=== PATIENT | female | born 1980 | race Caucasian/White ===

== ENCOUNTER 2019-01-27 23:21 | Emergency (ER) | payer MEDICAID ==
--- NOTE | 2019-01-27 23:42 | EDM.PDOC ---
ED HPI GENERAL MEDICAL PROBLEM - General Stated Complaint: WRIST INJURY Time Seen by Provider: 01/27/19 23:38 Source of Information: Reports: Patient History Limitations: Reports: No Limitations - History of Present Illness INITIAL COMMENTS - FREE TEXT/NARRATIVE: 38-year-old female who reports on 01/24/2019 she was walking across her living room floor and she tripped over some of her children's toys and fell onto her couch hyper flexing her right wrist and landing directly on her right wrist. She reports she had immediate pain in the wrist at that time and since that time she has continued to have pain with use of the right wrist. It is a sharp and sore pain. She rates pain as a 6/10. It just does not appear to be getting better or going away. She also feels tingling in her fingers off and on. 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 There were no other injuries. No neck pain. No head pain. No loss of consciousness. No back pain. There are no other associated signs or symptoms. There are no other modifying factors. 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 Surgical history as detailed below.) - Past Surgical History HEENT Surgical History: Reports: Oral Surgery ([place] teeth extraction) Female Surgical History: Reports: Section (2) Social & Family History - Tobacco Use Smoking Status *Q: Never Smoker - Alcohol Use Alcohol Use History: No - Living Situation & Occupation Social History Comment: States she has 8 children. Review of Systems - Review of Systems Review Of Systems: See Below Constitutional: Reports: No Symptoms Eyes: Reports: No Symptoms Ears: Reports: No Symptoms Nose: Reports: No Symptoms Mouth/Throat: Reports: No Symptoms Respiratory: Reports: No Symptoms Cardiovascular: Reports: No Symptoms GI/Abdominal: Reports: No Symptoms Genitourinary: Reports: No Symptoms Musculoskeletal: Reports: Joint Pain (Right wrist pain), Other (Patient is right -hand dominant) Skin: Reports: No Symptoms Neurological: Reports: No Symptoms Psychiatric: Reports: No Symptoms ED EXAM, GENERAL - Physical Exam Exam: See Below Exam Limited By: No Limitations General Appearance: Alert, WD/WN, Mild Distress Eye Exam: Bilateral Eye: EOMI, Normal Inspection, PERRL Ears: Normal External Exam, Hearing Grossly Normal Ear Exam: Bilateral Ear: Auricle Normal Nose: Normal Inspection, Normal Mucosa, No Blood Throat/Mouth: Normal Inspection, Normal Oropharynx, Normal Voice, No Airway Compromise Head: Atraumatic, Normocephalic Neck: Normal Inspection, Supple, Non-Tender, Full Range of Motion Respiratory/Chest: No Respiratory Distress, Lungs Clear, Normal Breath Sounds, No Accessory Muscle Use, Chest Non-Tender Cardiovascular: Normal Peripheral Pulses, Regular Rate, Rhythm, No JVD Peripheral Pulses: 2+: Radial (L), Radial (R) GI/Abdominal: Normal Bowel Sounds, Soft, Non-Tender Back Exam: Normal Inspection Extremities: Normal Range of Motion, No Pedal Edema, Normal Capillary Refill, Other (Tender over the right dorsal radial distal forearm and wrist area. There is no snuffbox area tenderness.) Neurological: Alert, Oriented, CN II-XII Intact, Normal Cognition, No Motor/ Sensory Deficits Skin Exam: Warm, Dry, Intact, Normal Color, No Rash Course - Orders/Labs/Meds Orders: Active Orders 24 hr Category Date Time Status Wrist Comp Min 3V Rt [CR] Stat Exams 01/27/19 23:32 Taken - Radiology Interpretation Free Text/Narrative:: X-ray of right wrist showed no definite fracture. - Re-Assessments/Exams Free Text/Narrative Re-Assessment/Exam: 01/28/19 00:08: The x-ray of the right wrist did not show any evidence for fracture on my read. She has no pain over her snuffbox area. She appears to have a sprain of her right wrist. We'll place her in a Velcro wrist splint and she is to have graded increase in activity with her wrist as tolerated. She should use the splint for comfort and support. She may take Tylenol and ibuprofen as needed for pain. She should follow-up with her primary doctor for any continued problems with pain or decreased mobility. Departure - Departure Time of Disposition: 00:15 Disposition: Home, Self-Care 01 Condition: Good Clinical Impression: Right wrist sprain Qualifiers: Encounter type: initial encounter Qualified Code(s): S63.501A - Unspecified sprain of right wrist, initial encounter - Discharge Information Instructions: Wrist Sprain, Adult Referrals: Diaz Leon MD [Primary Care Provider] - Additional Instructions: The x-ray showed no evidence of fracture per my read. The radiologist also reviewed this x-ray and saw no evidence of fracture as well. You should use the Velcro wrist splint that we provided you for comfort and support. You should take Tylenol or ibuprofen as needed for pain. Follow-up with your primary doctor if he have persisting pain and decreased mobility. Back to the emergency department for marked increase in pain, redness, increased swelling or any other concerning sign or symptom. - My Orders Last 24 Hours: My Active Orders 01/27/19 23:32 Wrist Comp Min 3V Rt [CR] Stat - Assessment/Plan Last 24 Hours: My Active Orders 01/27/19 23:32 Wrist Comp Min 3V Rt [CR] Stat
[2019-01-28 06:49] VITALS: BP 154/82; PULSE 90
== END 2019-01-28 00:30 | disposition home or self-care (01) ==
LOC: FB.ED 23:21
DX: S63.501A Unspecified sprain of right wrist, initial encounter (principal); E66.9 Obesity, unspecified; Z68.42 Body mass index [BMI] 45.0-49.9, adult; W18.09XA Striking against other object with subsequent fall, initial encounter
CPT/HCPCS: 73110-RT; 99283-25

== ENCOUNTER 2019-03-15 10:32 | Emergency (ER) | payer MEDICAID ==
[2019-03-15] MEDS ORDERED: predniSONE 20 MG Tab PO ONE (10:47)
[2019-03-15] MEDS ORDERED: diphenhydrAMINE 50 MG Cap PO ONE (10:47)
--- NOTE | 2019-03-15 10:49 | EDM.PDOC ---
ED HPI GENERAL MEDICAL PROBLEM - General Chief Complaint: General Stated Complaint: TONGUE SWELLING Time Seen by Provider: 03/15/19 10:45 Source of Information: Reports: Patient History Limitations: Reports: No Limitations - History of Present Illness INITIAL COMMENTS - FREE TEXT/NARRATIVE: Patient presented to the ED because of swelling of her tongue after eating a cookie. She denies having any dyspnea or choking sensation. There is no known food allergy. Generalized Pain Score (Numeric/FACES): 2 - Related Data Allergies Allergy/AdvReac Type Severity Reaction Status Date / Time No Known Allergies Allergy Verified 03/15/19 10:57 Home Meds: Home Meds Albuterol Sulfate [Albuterol Sulfate Hfa] 1 - 2 puff INH Q4HR PRN 01/28/19 [ History] Past Medical History - Past Health History Medical/Surgical History: Denies Medical/Surgical History (No chronic medical problems other than obesity. Surgical history as detailed below.) - Past Surgical History HEENT Surgical History: Reports: Oral Surgery ([place] teeth extraction) Female Surgical History: Reports: Section (2) ED ROS GENERAL - Review of Systems Review Of Systems: See Below Constitutional: Reports: No Symptoms HEENT: Reports: No Symptoms Respiratory: Reports: No Symptoms Cardiovascular: Reports: No Symptoms Endocrine: Reports: No Symptoms GI/Abdominal: Reports: No Symptoms : Reports: No Symptoms Musculoskeletal: Reports: No Symptoms Skin: Reports: No Symptoms Neurological: Reports: No Symptoms Psychiatric: Reports: No Symptoms ED EXAM, GENERAL - Physical Exam Exam: See Below Exam Limited By: No Limitations General Appearance: Alert, No Apparent Distress Ears: Normal External Exam, Normal Canal, Hearing Grossly Normal Nose: Normal Inspection, Normal Mucosa Throat/Mouth: Normal Inspection, Normal Lips, Normal Teeth, Other (mild swelling of the tongue) Neck: Normal Inspection Respiratory/Chest: No Respiratory Distress (Female) Exam: Normal External Exam, Normal Speculum Exam, Normal Bimanual Exam Back Exam: Normal Inspection, Full Range of Motion Extremities: Normal Inspection, Normal Range of Motion Neurological: Alert, Oriented, CN II-XII Intact Psychiatric: Normal Affect Skin Exam: Warm Course - Vital Signs Text/Narrative:: prednisone 40 mg po x1 benadryl 50 mg po x1 Last Recorded V/S: Last Vital Signs Temp 36.4 C 03/15/19 10:35 Pulse 109 H 03/15/19 10:35 Resp 20 03/15/19 10:35 BP 157/81 H 03/15/19 10:35 Pulse Ox 100 03/15/19 10:35 - Orders/Labs/Meds Meds: Medications Discontinued Medications Generic Name Dose Route Start Last Admin Trade Name Joyce PRN Reason Stop Dose Admin Diphenhydramine HCl 50 mg 03/15/19 10:47 03/15/19 10:54 Benadryl PO 03/15/19 10:48 50 mg ONETIME ONE Administration Prednisone 40 mg 03/15/19 10:47 03/15/19 10:54 Prednisone PO 03/15/19 10:48 40 mg ONETIME ONE Administration Departure - Departure Time of Disposition: 10:45 Disposition: Home, Self-Care 01 Condition: Good Clinical Impression: Angioedema - Discharge Information Instructions: Angioedema, [id number] Referrals: Diaz Leon MD [Primary Care Provider] - Forms: ED Department Discharge Additional Instructions: pleaser read discharge instructions on angioedema(soft tissue swelling) Drink ice water Follow up as needed Sepsis Event Note - Focused Exam Vital Signs: Vital Signs Temp Pulse Resp BP Pulse Ox 03/15/19 10:35 36.4 C 109 H 20 157/81 H 100 Date Exam was Performed: 03/15/19 Time Exam was Performed: 11:24
[2019-03-15 11:52] VITALS: BP 147/82; PULSE 77
== END 2019-03-15 11:44 | disposition home or self-care (01) ==
LOC: FB.ED 10:32
DX: T78.3XXA Angioneurotic edema, initial encounter (principal)
CPT/HCPCS: 99283; A9270

== ENCOUNTER 2020-03-04 19:14 | Emergency (ER) | payer MEDICAID ==
[2020-03-04] MEDS: Famotidine 20 MG Tab PO STA (19:56)
[2020-03-04] MEDS: Dexamethasone 4 MG/ML SDV IM ONE (19:56)
--- NOTE | 2020-03-04 19:56 | EDM.PDOC ---
ED HPI GENERAL MEDICAL PROBLEM - General Chief Complaint: ENT Problem Stated Complaint: SWOLLEN TONGUE Time Seen by Provider: 03/04/20 19:30 Source of Information: Reports: Patient History Limitations: Reports: No Limitations - History of Present Illness INITIAL COMMENTS - FREE TEXT/NARRATIVE: pt states she has a history of angioedema of unknown cause m may break out at any time this am noted swelling in the left side of the tongue , took benadryl seemed to improved then she developed swelling on the right side of the tongue, tool another benadryl but did not see any improvement , so didcide to come in for evaluation has been investigated and no etiology of the angioedema has been found Onset: Today, Gradual Onset Date: 03/04/20 Duration: Hour(s): (6), Waxing/Waning Location: Reports: Face (int the tongue) Quality: Reports: Dull Improves with: Reports: None Worsens with: Reports: None Associated Symptoms: Reports: No Other Symptoms - Related Data Allergies Allergy/AdvReac Type Severity Reaction Status Date / Time No Known Allergies Allergy Verified 03/04/20 19:23 Home Meds: Home Meds Albuterol Sulfate [Albuterol Sulfate Hfa] 1 - 2 puff INH Q4HR PRN 01/28/19 [History] predniSONE [Prednisone] 40 mg PO DAILY #10 tablet 03/04/20 [Rx] Past Medical History - Past Health History Medical/Surgical History: Denies Medical/Surgical History (No chronic medical problems other than obesity. Surgical history as detailed below.) - Past Surgical History HEENT Surgical History: Reports: Oral Surgery Other HEENT Surgeries/Procedures: [place] teeth extraction. Female Surgical History: Reports: Section Other Female Surgeries/Procedures: X2. Social & Family History - Family History Family Medical History: No Pertinent Family History - Tobacco Use Tobacco Use Status *Q: Never Tobacco User Second Hand Smoke Exposure: No - Caffeine Use Caffeine Use: Reports: Soda - Recreational Drug Use Recreational Drug Use: No ED ROS ENT - Review of Systems Review Of Systems: See Below Constitutional: Reports: No Symptoms HEENT: Reports: Throat Swelling, Other (tongue swelling worse on the left side noted) Respiratory: Reports: No Symptoms Cardiovascular: Reports: No Symptoms Endocrine: Reports: No Symptoms GI/Abdominal: Reports: No Symptoms Musculoskeletal: Reports: No Symptoms Skin: Reports: No Symptoms Neurological: Reports: No Symptoms Psychiatric: Reports: No Symptoms Hematologic/Lymphatic: Reports: No Symptoms ED EXAM, ENT - Physical Exam Exam: See Below Exam Limited By: No Limitations General Appearance: Alert, No Apparent Distress Eye Exam: Bilateral Eye: EOMI Ears: Normal External Exam Nose: Normal Inspection Mouth/Throat: Lip Swelling, Muffled Voice, Pharyngeal Erythema, Throat Swelling, Tongue Swelling, Tonsillar Swelling Head: Atraumatic, Normocephalic Neck: Supple, Non-Tender Respiratory/Chest: No Respiratory Distress, Lungs Clear Cardiovascular: Regular Rate, Rhythm Back: Normal Inspection, Full Range of Motion Extremities: Normal Inspection, Normal Range of Motion Neurological: Alert, Oriented, CN II-XII Intact Psychiatric: Normal Affect Skin: Warm, Dry Course - Vital Signs Last Recorded V/S: Last Vital Signs Temp 36.4 C 03/04/20 19:20 Pulse 98 03/04/20 20:30 Resp 17 03/04/20 20:30 BP 134/83 03/04/20 20:30 Pulse Ox 100 03/04/20 20:30 - Orders/Labs/Meds Meds: Medications Discontinued Medications Generic Name Dose Route Start Last Admin Trade Name Joyce PRN Reason Stop Dose Admin Dexamethasone 10 mg 03/04/20 19:46 03/04/20 19:56 Decadron IM 03/04/20 19:47 10 mg ONETIME ONE Administration Famotidine 40 mg 03/04/20 19:47 03/04/20 19:56 Pepcid PO 03/04/20 19:48 40 mg NOW STA Administration - Re-Assessments/Exams Free Text/Narrative Re-Assessment/Exam: 03/04/20 20:14 pt was given decadron and famotidine , swelling not getting worse Departure - Departure Time of Disposition: 20:35 Disposition: Home, Self-Care 01 Condition: Good Clinical Impression: Angioedema, Severe tongue swelling - Discharge Information *PRESCRIPTION DRUG MONITORING PROGRAM REVIEWED*: Not Applicable *COPY OF PRESCRIPTION DRUG MONITORING REPORT IN PATIENT MARY: Not Applicable Prescriptions: predniSONE [Prednisone] 40 mg PO DAILY #10 tablet Instructions: Angioedema, [id number] Referrals: Diaz Leon MD [Primary Care Provider] - Forms: ED Department Discharge Additional Instructions: 1) use cold / ice chips to the tongue as needed 2) Monitor any worsening of symptoms: ok to use benadryl and prednisone as prescribed 3) Call and follow up with your PCP Sepsis Event Note (ED) - Evaluation Sepsis Screening Result: No Definite Risk - Focused Exam Vital Signs: Vital Signs Temp Pulse Resp BP Pulse Ox 03/04/20 20:30 98 17 134/83 100 03/04/20 19:20 36.4 C 108 H 16 148/95 H 100
[2020-03-04 20:35] VITALS: BP 134/83; PULSE 98
== END 2020-03-04 20:35 | disposition home or self-care (01) ==
LOC: FB.ED 19:14
DX: T78.3XXA Angioneurotic edema, initial encounter (principal); R22.0 Localized swelling, mass and lump, head
CPT/HCPCS: 96372; 99283; A9270-GY; J1100

== ENCOUNTER 2021-05-10 21:45 | Emergency (ER) | payer MEDICAID | END 2021-05-10 22:00 | disposition home or self-care (01) | LOC: FB.ED 21:45 | DX: Z53.21 Procedure and treatment not carried out due to patient leaving prior to being seen by health care provider (principal) ==

== ENCOUNTER 2021-05-13 21:14 | Emergency (ER) | payer OTHER, MEDICAID ==
[2021-05-14 00:23] VITALS: BP 160/68; PULSE 79
== END 2021-05-13 23:10 | disposition home or self-care (01) ==
LOC: FB.ED 21:14
DX: S16.1XXA Strain of muscle, fascia and tendon at neck level, initial encounter (principal); S29.011A Strain of muscle and tendon of front wall of thorax, initial encounter; V89.2XXA Person injured in unspecified motor-vehicle accident, traffic, initial encounter; Y92.410 Unspecified street and highway as the place of occurrence of the external cause
CPT/HCPCS: 71101-RT; 72050; 99283